=== PATIENT | female | born 1985 | race Caucasian/White ===

== ENCOUNTER 2019-01-21 06:32 | Day surgery (SDC) | payer OTHER ==
[~2019-01-21 06:32] MED LIST: Lactated Ringers 1,000 ML IV SCH
--- NOTE | 2019-01-21 06:54 | PCM.PREANE ---
Preanesthetic Assessment - Anesthesia/Transfusion/Family Hx Anesthesia History: Prior Anesthesia Without Reaction Family History of Anesthesia Reaction: No Transfusion History: No Prior Transfusion(s) - Review of Systems General: No Symptoms Pulmonary: No Symptoms Cardiovascular: No Symptoms Gastrointestinal: No Symptoms Neurological: No Symptoms Other: Reports: None - Physical Assessment NPO Status Date: 01/20/19 NPO Status Time: 21:30 Height: 1.7 m Weight: 71.214 kg ASA Class: 2 Mental Status: Alert & Oriented x3 Airway Class: Mallampati = 2 Dentition: Reports: Normal Dentition Thyro-Mental Finger Breadths: 2 (short TMD) Mouth Opening Finger Breadths: 3 ROM/Head Extension: Full Lungs: Clear to Auscultation, Normal Respiratory Effort Cardiovascular: Regular Rate, Regular Rhythm - Allergies Allergies/Adverse Reactions: Allergies Allergy/AdvReac Type Severity Reaction Status Date / Time amoxicillin Allergy Rash Verified 01/15/19 11:54 betamethasone Allergy Rash Verified 01/15/19 11:54 [From [employer]] latex Allergy Rash Verified 01/15/19 11:54 - Acknowledgements Anesthesia Type Planned: MAC (The patient understands and accepts the anesthetic risks and benefits of MAC, including possible awareness and possible conversion to general anesthesia. All questions answered. She agrees to proceed. ) Pt an Appropriate Candidate for the Planned Anesthesia: Yes Alternatives and Risks of Anesthesia Discussed w Pt/Guardian: Yes Pt/Guardian Understands and Agrees with Anesthesia Plan: Yes PreAnesthesia Questionnaire HEENT History: Reports: None Cardiovascular History: Reports: None Respiratory History: Reports: None Gastrointestinal History: Reports: None Genitourinary History: Reports: Renal Calculus Other Genitourinary History: has passed kidney stones Musculoskeletal History: Reports: Back Pain, Chronic (preop pain score 3/10, sometimes pain radiates into right lower extremity.) Neurological History: Reports: Migraines Psychiatric History: Reports: None Endocrine/Metabolic History: Reports: None - Past Surgical History HEENT Surgical History: Reports: Oral Surgery Other HEENT Surgeries/Procedures: wisdom teeth removed Other Surgical History Comment: history of lipoma removal with local anesthesia - SUBSTANCE USE Smoking Status *Q: Never Smoker Days Per Week of Alcohol Use: 0 (etoh "1x every 2-3 months") Recreational Drug Use History: No - HOME MEDS Home Medications: Home Meds Biotin 10 mg PO DAILY 01/15/19 [History] Cholecalciferol (Vitamin D3) [Vitamin D3] 5,000 unit PO DAILY 01/15/19 [History] Cyanocobalamin (Vitamin B12) [Vitamin B12] 500 mcg PO DAILY 01/15/19 [History] Diclofenac Sodium [Voltaren 1% Gel] 4 gm TOP QID PRN 01/15/19 [History] Ibuprofen [Motrin] 200 mg PO ASDIRECTED PRN 01/15/19 [History] Naproxen Sodium [Aleve] 220 mg PO ASDIRECTED 01/15/19 [History] Norgestimate-Ethinyl Estradiol [Tri-Linyah Tablet] 1 tab PO DAILY 01/15/19 [ History] Phentermine HCl 37.5 mg PO QAM 01/15/19 [History] - CURRENT (IN HOUSE) MEDS Current Meds: Current Medications Lactated Ringer's (Ringers, Lactated) 1,000 mls @ 125 mls/hr IV ASDIRECTED CARMEN
[2019-01-21] MEDS ORDERED: Midazolam 1 MG/ML 2 ML SDV ONE (07:02)
[2019-01-21] MEDS ORDERED: fentaNYL 100 MCG/2 ML SDV ONE (07:02)
[2019-01-21] MEDS ORDERED: Propofol 200 MG/20 ML SDV ONE (07:03)
[2019-01-21] MEDS ORDERED: Ketamine 500 mg/10 ML MDV ONE (07:21)
[2019-01-21] MEDS ORDERED: Lidocaine 1% 20 ML MDV ONE (07:21)
[2019-01-21] MEDS ORDERED: Bupivacaine 0.5% 10 ML SDV ONE (07:21)
[2019-01-21] MEDS ORDERED: Lactated Ringers 1,000 ML IV SCH (09:00)
--- NOTE | 2019-01-21 09:01 | PCM.OPNOTE ---
- General Post-Op/Procedure Note Date of Surgery/Procedure: 01/21/19 Operative Procedure(s): Excision volar and dorsal left forearm masses Pre Op Diagnosis: Left volar and dorsal forearm masses Post-Op Diagnosis: Same Anesthesia Technique: Local, MAC (ASA II) Primary Surgeon: Flaquito Perez Fluid Replacement, Intraop: 600 EBL in mLs: 5 Condition: Good Free Text/Narrative:: DICTATION 577226 CPT CODE 03312
--- NOTE | 2019-01-21 09:26 | PCM48HPAN ---
Post Anesthesia Note - EVALUATION WITHIN 48HRS OF ANESTHETIC Vital Signs in Normal Range: Yes Patient Participated in Evaluation: Yes Respiratory Function Stable: Yes Airway Patent: Yes Cardiovascular Function Stable: Yes Hydration Status Stable: Yes Pain Control Satisfactory: Yes Nausea and Vomiting Control Satisfactory: Yes Mental Status Recovered: Yes Resp Rate: 16 - COMMENTS/OBSERVATIONS Free Text/Narrative:: The patient by passed phase 1. She has no complaints at this time. There were no apparent anesthetic complications at this time. Discharge home per criteria.
--- NOTE | 2019-01-21 11:04 | OR ---
SURGEON: Flaquito Perez M.D. DATE OF PROCEDURE: 01/21/2019 OPERATION PERFORMED: Excision of left volar and left dorsal forearm masses. ANESTHESIA: Local MAC. ASA CLASSIFICATION: II. PREOPERATIVE DIAGNOSIS: Enlarging painful left forearm masses; one on the volar aspect, one on the dorsal aspect. POSTOPERATIVE DIAGNOSIS: Enlarging painful left forearm masses; one on the volar aspect, one on the dorsal aspect. ESTIMATED BLOOD LOSS: 5 mL. INTRAOPERATIVE FLUID REPLACEMENT: 600 mL of crystalloid. DESCRIPTION OF PROCEDURE: The patient was taken to the operating room and placed on the operating table in the supine position. Time-out was called for appropriate identification of the patient and procedure. Thigh-high TEDs and sequential compression boots were placed. The left upper extremity was prepped with DuraPrep solution. Sterile drapes were applied. Skin incision for both had been marked out as had the surgical sites. The volar aspect was approached first. The skin was infiltrated with 1% Xylocaine and 0.5% Marcaine solution. Skin incision was made and deepened to the subcutaneous tissue where the forearm masses were identified. These were dissected out with a combination of sharp and blunt dissection and electrocautery. Bleeding sites were electrocoagulated. The wound was then palpated. No other masses were noted. The subcutaneous tissue was reapproximated with 3-0 Vicryl. The skin edges were reapproximated with subcuticular 4-0 Monocryl. Our attention was now turned to the dorsal aspect where again the skin was infiltrated with 1% Xylocaine and 0.5% Marcaine solution. Skin incision was made and deepened down to the subcutaneous mass, which again was dissected free using a combination of sharp and blunt dissection and electrocautery. Once the mass was removed, the bleeding sites were electrocoagulated. The specimen was sent separately and each specimen identified appropriately as the left volar forearm mass and the left dorsal forearm mass. Again, this incision was closed in 2 layers approximating the subcutaneous tissue with 3-0 Vicryl and the skin with subcuticular 4-0 Monocryl. Both incisions were Steri-Stripped and dressed with sterile Tegaderm pads. Sponge, needle, and instrument counts were all correct. The patient was taken to recovery room in stable condition. BOSSMAN / PACO /[id number]
== END 2019-01-21 09:25 | disposition home or self-care (01) ==
LOC: MW.SDS 06:32
PROVIDERS: ATTEND Surgery
DX: D17.22 Benign lipomatous neoplasm of skin and subcutaneous tissue of left arm (principal); M51.36 Other intervertebral disc degeneration, lumbar region; M41.9 Scoliosis, unspecified; Z88.8 Allergy status to other drugs, medicaments and biological substances; Z88.1 Allergy status to other antibiotic agents; Z91.040 Latex allergy status; Z79.1 Long term (current) use of non-steroidal anti-inflammatories (NSAID); Z79.3 Long term (current) use of hormonal contraceptives; Z79.891 Long term (current) use of opiate analgesic; Z79.899 Other long term (current) drug therapy
CPT/HCPCS: 25075; 81025; J2001; J2250; J2704; J3010; J3490; J7120; 88304

== ENCOUNTER 2019-11-18 06:33 | Day surgery (SDC) | payer BC, OTHER ==
[~2019-11-18 06:33] MED LIST changes: +cefOXitin 1 GM in Premix Bag 1 BAG IV SCH
--- NOTE | 2019-11-18 07:10 | PCM.PREANE ---
Preanesthetic Assessment - Anesthesia/Transfusion/Family Hx Anesthesia History: Prior Anesthesia Without Reaction Family History of Anesthesia Reaction: No Transfusion History: No Prior Transfusion(s) Intubation History: Unknown - Review of Systems General: No Symptoms Pulmonary: No Symptoms Cardiovascular: No Symptoms Gastrointestinal: Abdominal Pain Neurological: No Symptoms Other: Reports: None - Physical Assessment Height: 5 ft 6 in Weight: 63.503 kg ASA Class: 2 Mental Status: Alert & Oriented x3 Airway Class: Mallampati = 2 Dentition: Reports: Normal Dentition Thyro-Mental Finger Breadths: 3 Mouth Opening Finger Breadths: 2 ROM/Head Extension: Full Lungs: Clear to Auscultation, Normal Respiratory Effort Cardiovascular: Regular Rate, Regular Rhythm - Allergies Allergies/Adverse Reactions: Allergies Allergy/AdvReac Type Severity Reaction Status Date / Time amoxicillin Allergy Rash Verified 11/13/19 15:20 betamethasone Allergy Rash Verified 11/13/19 15:20 [From Celestone] ketamine Allergy Pain Verified 11/13/19 15:20 latex Allergy Itching Verified 11/13/19 15:20 pregabalin [From Lyrica] Allergy Rash Verified 11/13/19 15:20 - Blood Blood Available: No - Anesthesia Plan Pre-Op Medication Ordered: None - Acknowledgements Anesthesia Type Planned: General Anesthesia Pt an Appropriate Candidate for the Planned Anesthesia: Yes Alternatives and Risks of Anesthesia Discussed w Pt/Guardian: Yes Pt/Guardian Understands and Agrees with Anesthesia Plan: Yes PreAnesthesia Questionnaire HEENT History: Reports: None Cardiovascular History: Reports: None Other Cardiovascular History: takes Spironolactone for acne Respiratory History: Reports: None Gastrointestinal History: Reports: Cholelithiasis Genitourinary History: Reports: Renal Calculus Other Genitourinary History: hx of passing kidney stones Musculoskeletal History: Reports: Back Pain, Chronic, Other (See Below) Neurological History: Reports: Migraines, Other (See Below) Other Neuro History: chronic migraines- occur at least weekly, hx of degenerative disc disease, hx of motion sickness Psychiatric History: Reports: None Endocrine/Metabolic History: Reports: None Immunologic History: Reports: Other (See Below) Other Immunologic History: being tested for Lupus - Past Surgical History Head Surgeries/Procedures: Reports: None HEENT Surgical History: Reports: Oral Surgery Other HEENT Surgeries/Procedures: wisdom teeth removed Musculoskeletal Surgical History: Reports: Other (See Below) Other Musculoskeletal Surgeries/Procedures:: excision of lipoma and mass left arm - SUBSTANCE USE Smoking Status *Q: Never Smoker Recreational Drug Use History: No - HOME MEDS Home Medications: Home Meds Biotin 10 mg PO DAILY 01/15/19 [History] Cholecalciferol (Vitamin D3) [Vitamin D3] 5,000 unit PO DAILY 01/15/19 [History] Cyanocobalamin (Vitamin B12) [Vitamin B12] 500 mcg PO DAILY 01/15/19 [History] Diclofenac Sodium [Voltaren 1% Gel] 4 gm TOP QID PRN 01/15/19 [History] Naproxen Sodium [Aleve] 220 mg PO ASDIRECTED PRN 01/15/19 [History] Norgestimate-Ethinyl Estradiol [Tri-Linyah Tablet] 1 tab PO DAILY 01/15/19 [ History] Cyanocobalamin (Vitamin B-12) [Cyanocobalamin Injection] 1,000 mcg IM ASDIRECTED 11/13/19 [History] DULoxetine [Cymbalta] 60 mg PO DAILY 11/13/19 [History] Hydrocodone/Acetaminophen [Hydrocodon-Acetaminophen 5-325] 1 tab PO ASDIRECTED PRN 11/13/19 [History] Naltrexone HCl 4.5 mg TOP BEDTIME 11/13/19 [History] Ondansetron [Zofran] 4 mg PO ASDIRECTED PRN 11/13/19 [History] Spironolactone 50 mg PO DAILY 11/13/19 [History] Topiramate 25 mg PO TID PRN 11/13/19 [History] - CURRENT (IN HOUSE) MEDS Current Meds: Current Medications Cefoxitin Sodium 1 gm/ Premix 50 mls @ 100 mls/hr IV ONETIME CARMEN Lactated Ringer's (Ringers, Lactated) 1,000 mls @ 125 mls/hr IV ASDIRECTED [facility]
[2019-11-18] MEDS ORDERED: Scopolamine 1.5 MG Transdermal Patch TRDERM PRN (07:11)
[2019-11-18] MEDS ORDERED: Rocuronium 100 MG/10 ML Syringe ONE (07:17)
[2019-11-18] MEDS ORDERED: Lidocaine 2% 5 ML SDV ONE (07:17)
[2019-11-18] MEDS ORDERED: Propofol 200 MG/20 ML SDV ONE (07:17)
[2019-11-18] MEDS ORDERED: Midazolam 1 MG/ML 2 ML SDV ONE (07:17)
[2019-11-18] MEDS ORDERED: fentaNYL 250 MCG/5 ML SDV ONE (07:17)
[2019-11-18] MEDS ORDERED: Bupivacaine 0.25% 10 ML SDV ONE (07:23)
[2019-11-18] MEDS ORDERED: ceFAZolin 1 GM Vial ONE (07:23)
[2019-11-18] MEDS ORDERED: Bupivacaine 0.5% 10 ML SDV ONE (07:36)
[2019-11-18] MEDS ORDERED: Ketorolac 30 MG/ML SDV ONE (10:09)
[2019-11-18] MEDS ORDERED: Sugammadex Sodium 200 MG/2 ML VIAL ONE (10:09)
[2019-11-18] MEDS ORDERED: Ondansetron 4 MG/2 ML SDV ONE ×2 (10:11)
[2019-11-18] MEDS ORDERED: Acetaminophen/HYDROcodone 325-5 MG Tab PO PRN (10:29)
[2019-11-18] MEDS ORDERED: Morphine 10 MG/ML Syringe IVPUSH PRN (10:29)
[2019-11-18] MEDS ORDERED: Lactated Ringers 1,000 ML IV SCH (10:30)
--- NOTE | 2019-11-18 10:32 | PCM.OPNOTE ---
- General Post-Op/Procedure Note Date of Surgery/Procedure: 11/18/19 Operative Procedure(s): Laparoscopic cholecystectomy Pre Op Diagnosis: Symptomatic cholelithiasis Post-Op Diagnosis: Same Anesthesia Technique: General ET Tube (ASA II) Primary Surgeon: Flaquito Perez Fluid Replacement, Intraop: 1,500 Output, Urine Amount: 50 EBL in mLs: 10 Condition: Good Free Text/Narrative:: DICTATION 613959 CPT CODE 66529
[2019-11-18] MEDS ORDERED: fentaNYL 100 MCG/2 ML SDV IVPUSH PRN (10:37)
[2019-11-18] MEDS ORDERED: HYDROmorphone 2 MG/ML Syringe IVPUSH PRN (10:39)
--- NOTE | 2019-11-18 11:13 | PCM.POSTAN ---
POST ANESTHESIA ASSESSMENT - MENTAL STATUS Mental Status: Alert, Oriented - VITAL SIGNS Vital Signs: Last Vital Signs Temp 97.0 F 11/18/19 10:32 Pulse 55 L 11/18/19 11:07 Resp 18 11/18/19 11:07 BP 132/74 11/18/19 11:07 Pulse Ox 99 11/18/19 11:07 - RESPIRATORY Respiratory Status: Respiratory Rate WNL, Airway Patent, O2 Saturation Stable - CARDIOVASCULAR CV Status: Pulse Rate WNL, Blood Pressure Stable - GASTROINTESTINAL GI Status: No Symptoms - PAIN Pain Score: 2 - POST OP HYDRATION Hydration Status: Adequate & Stable - OBSERVATIONS Free Text/Narrative:: Pt stable for tx to phase II recovery.
--- NOTE | 2019-11-18 11:51 | OR ---
SURGEON: Flaquito Perez M.D. DATE OF PROCEDURE: 11/18/2019 OPERATION PERFORMED: Laparoscopic cholecystectomy. PRIMARY SURGEON: Flaquito Perez MD. ANESTHESIA: General endotracheal. ASA CLASSIFICATION: II. PREOPERATIVE DIAGNOSIS: Symptomatic cholelithiasis. POSTOPERATIVE DIAGNOSIS: Symptomatic cholelithiasis. ESTIMATED BLOOD LOSS: 10 mL. INTRAOPERATIVE FLUID REPLACEMENT: 1500 mL of crystalloid. INTRAOPERATIVE URINARY OUTPUT: 50 mL. DESCRIPTION OF PROCEDURE: The patient was taken to the operating room and placed on the operating table in the supine position. Time-out was called for appropriate identification of the patient and procedure. Thigh-high TEDs and sequential compression boots were placed. Following satisfactory attainment of general endotracheal anesthesia, a Meyer catheter was placed in the patient's urinary bladder. The abdomen was prepped with DuraPrep solution. Sterile drapes were applied. The skin approximately 3 cm below the umbilicus was infiltrated with 0.5% Marcaine solution. Skin incision was made and deepened through the subcutaneous tissue obtaining hemostasis with the use of electrocautery. The Veress needle was introduced into the peritoneal cavity. Saline drop test was positive. Carbon dioxide pneumoperitoneum was established with the release set at 13 cm of water. Once a satisfactory pneumoperitoneum was established, the Veress needle was removed and 5 mm camera and port were placed through the infraumbilical incision. The patient was now positioned with her feet down and rolled to the left. Under camera vision, 12 mm subxiphoid, 5 mm midclavicular, and 5 mm anterior axillary ports were placed. Each incision had preemptively been infiltrated with 0.5% Marcaine solution. The gallbladder was grasped. The cholecystohepatic triangle was dissected free obtaining good critical view of the cystic duct and cystic artery. These structures were serially hemoclipped and then divided with the laparoscopic Metzenbaum scissor. The gallbladder was dissected away from its bed using electrocautery. Once the gallbladder was amputated, this was placed in an Endopouch. The right upper quadrant was inspected for hemostasis and small bleeding sites were electrocoagulated. The right upper quadrant was irrigated with sterile saline solution and all fluid was aspirated. The bed of the gallbladder was packed with Surgicel. The right upper quadrant was then irrigated with 250 mL of saline with 20 mL of 0.5% Marcaine solution. Under camera vision, the Endo Catch containing gallbladder and 12 mm port were removed. Under camera vision, 5 mm anterior axillary and midclavicular ports were removed. Finally, the infraumbilical camera and port were removed. All wounds were inspected for hemostasis and small bleeding sites were electrocoagulated. The subxiphoid and infraumbilical incisions were closed in 2 layers approximating the subcutaneous tissue with 3-0 Vicryl and the skin with subcuticular 4-0 Monocryl. The anterior axillary and midclavicular incisions were closed with subcuticular 4-0 Monocryl. All incisions were Steri- Stripped and dressed with sterile Tegaderm pads. Meyer catheter was removed prior to emergence from anesthesia. Following emergence from anesthesia and extubation, the patient was taken to recovery room in stable condition. BOSSMAN ANTONIO /[id number]
--- NOTE | 2019-11-18 13:29 | PCM48HPAN ---
Post Anesthesia Note - EVALUATION WITHIN 48HRS OF ANESTHETIC Vital Signs in Normal Range: Yes Patient Participated in Evaluation: Yes Respiratory Function Stable: Yes Airway Patent: Yes Cardiovascular Function Stable: Yes Hydration Status Stable: Yes Pain Control Satisfactory: Yes Nausea and Vomiting Control Satisfactory: Yes Mental Status Recovered: Yes Vital Signs: Last Vital Signs Temp 36.3 C 11/18/19 11:10 Pulse 62 11/18/19 11:55 Resp 16 11/18/19 11:55 BP 124/70 11/18/19 11:55 Pulse Ox 100 11/18/19 11:55 - COMMENTS/OBSERVATIONS Free Text/Narrative:: No anesthesia problems
== END 2019-11-18 13:49 | disposition home or self-care (01) ==
LOC: MW.SDS 06:33
PROVIDERS: ATTEND Surgery
DX: K80.10 Calculus of gallbladder with chronic cholecystitis without obstruction (principal); M51.36 Other intervertebral disc degeneration, lumbar region; M47.816 Spondylosis without myelopathy or radiculopathy, lumbar region; G43.909 Migraine, unspecified, not intractable, without status migrainosus; Z88.0 Allergy status to penicillin; Z88.1 Allergy status to other antibiotic agents; Z88.8 Allergy status to other drugs, medicaments and biological substances; Z91.040 Latex allergy status; Z79.899 Other long term (current) drug therapy; Z86.2 Personal history of diseases of the blood and blood-forming organs and certain disorders involving the immune mechanism; Z83.79 Family history of other diseases of the digestive system; Z87.442 Personal history of urinary calculi; Z98.890 Other specified postprocedural states
CPT/HCPCS: 36415; 47562; 84703; 88304; A9270; J0694; J1885; J2001; J2250; J2405; J2704; J3010; J3490; J7120; 00790; J0690

== ENCOUNTER 2021-01-22 09:15 | Day surgery (SDC) | payer MEDICAID ==
[~2021-01-22 09:15] MED LIST changes: +Midazolam 1 MG/ML 2 ML SDV ONE; +Propofol 200 MG/20 ML SDV ONE; -cefOXitin 1 GM in Premix Bag 1 BAG IV SCH
--- NOTE | 2021-01-22 10:01 | PCM.PREANE ---
Preanesthetic Assessment - Anesthesia/Transfusion/Family Hx Anesthesia History: Prior Anesthesia Without Reaction Family History of Anesthesia Reaction: No Transfusion History: No Prior Transfusion(s) Intubation History: Unknown - Review of Systems General: No Symptoms Pulmonary: No Symptoms Cardiovascular: No Symptoms Gastrointestinal: No Symptoms Neurological: No Symptoms Other: Reports: None - Physical Assessment NPO Status Date: 01/22/21 NPO Status Time: 00:01 Height: 5 ft 6 in Weight: 160 lb ASA Class: 3 Mental Status: Alert & Oriented x3 Airway Class: Mallampati = 2 Dentition: Reports: Normal Dentition ROM/Head Extension: Full Lungs: Clear to Auscultation, Normal Respiratory Effort Cardiovascular: Regular Rate, Regular Rhythm - Allergies Allergies/Adverse Reactions: Allergies Allergy/AdvReac Type Severity Reaction Status Date / Time amoxicillin Allergy Rash Verified 01/20/21 08:20 betamethasone Allergy Rash Verified 01/20/21 08:20 [From [employer]] ketamine Allergy Pain Verified 01/20/21 08:20 latex Allergy Itching Verified 01/20/21 08:20 pregabalin [From Lyrica] Allergy Rash Verified 01/20/21 08:20 - Anesthesia Plan Pre-Op Medication Ordered: None - Acknowledgements Anesthesia Type Planned: General Anesthesia Pt an Appropriate Candidate for the Planned Anesthesia: Yes Alternatives and Risks of Anesthesia Discussed w Pt/Guardian: Yes Pt/Guardian Understands and Agrees with Anesthesia Plan: Yes Additional Comments: npo after mn chronic lbp on naltrexone last dose last night headaches tob none etoh rarely bmi 26 par no questions PreAnesthesia Questionnaire HEENT History: Reports: None Cardiovascular History: Reports: None Respiratory History: Reports: None Gastrointestinal History: Reports: Cholelithiasis Genitourinary History: Reports: Renal Calculus Other Genitourinary History: hx of passing kidney stones Musculoskeletal History: Reports: Back Pain, Chronic Other Musculoskeletal History: DDD Neurological History: Reports: Migraines Psychiatric History: Reports: None Endocrine/Metabolic History: Reports: None Hematologic History: Reports: None Immunologic History: Reports: None Oncologic (Cancer) History: Reports: None Dermatologic History: Reports: None - Past Surgical History Head Surgeries/Procedures: Reports: None HEENT Surgical History: Reports: Oral Surgery Other HEENT Surgeries/Procedures: wisdom teeth removed Cardiovascular Surgical History: Reports: None Respiratory Surgical History: Reports: None GI Surgical History: Reports: Cholecystectomy Female Surgical History: Reports: None Endocrine Surgical History: Reports: None Neurological Surgical History: Reports: None Musculoskeletal Surgical History: Reports: Other (See Below) Other Musculoskeletal Surgeries/Procedures:: excision of lipoma and mass left arm Oncologic Surgical History: Reports: None Dermatological Surgical History: Reports: None - SUBSTANCE USE Tobacco Use Status *Q: Never Tobacco User - HOME MEDS Home Medications: Home Meds Cholecalciferol (Vitamin D3) [Vitamin D3] 5,000 unit PO DAILY 01/15/19 [History] Naproxen Sodium [Aleve] 220 mg PO ASDIRECTED PRN 01/15/19 [History] Naltrexone HCl 4.5 mg PO BEDTIME 11/13/19 [History] Ondansetron [Zofran] 4 mg PO ASDIRECTED PRN 11/13/19 [History] Spironolactone 50 mg PO DAILY 11/13/19 [History] Cyanocobalamin (Vitamin B12) [Vitamin B12] 500 mcg PO DAILY 01/20/21 [History] - CURRENT (IN HOUSE) MEDS Current Meds: Current Medications Lactated Ringer's (Ringers, Lactated) 1,000 mls @ 125 mls/hr IV ASDIRECTED CARMEN Discontinued Medications Midazolam HCl (Midazolam 1 Mg/Ml 2 Ml Sdv) Confirm Administered Dose 2 mg .ROUTE .STK-MED ONE Stop: 01/22/21 06:53 Propofol (Propofol 200 Mg/20 Ml Sdv) Confirm Administered Dose 600 mg .ROUTE .STK-MED ONE Stop: 01/22/21 06:53
--- NOTE | 2021-01-22 11:44 | PCM.OPNOTE ---
- General Post-Op/Procedure Note Date of Surgery/Procedure: 01/22/21 Operative Procedure(s): Colonoscopy with cecal and rectal biopsies Pre Op Diagnosis: Change in bowel habits. History of irritable bowel syndrome. Post-Op Diagnosis: Nonspecific colitis Anesthesia Technique: MAC (ASA II) Primary Surgeon: Flaquito Perez Medicare Nurse: Amanda Lipscomb Condition: Good Free Text/Narrative:: DICTATION 327991 CPT CODE 66499
[2021-01-22] MEDS ORDERED: Lactated Ringers 1,000 ML IV SCH (11:45)
--- NOTE | 2021-01-22 11:57 | PCM.POSTAN ---
POST ANESTHESIA ASSESSMENT - MENTAL STATUS Mental Status: Alert (no anesthetic problems), Oriented - VITAL SIGNS Vital Signs: Last Vital Signs Temp 98.8 F 01/22/21 09:25 Pulse 68 01/22/21 11:50 Resp 14 01/22/21 11:50 BP 105/60 01/22/21 11:50 Pulse Ox 100 01/22/21 11:50 - RESPIRATORY Respiratory Status: Respiratory Rate WNL, Airway Patent, O2 Saturation Stable - CARDIOVASCULAR CV Status: Pulse Rate WNL, Blood Pressure Stable - GASTROINTESTINAL GI Status: No Symptoms - POST OP HYDRATION Hydration Status: Adequate & Stable
--- NOTE | 2021-01-22 12:27 | PCM48HPAN ---
Post Anesthesia Note - EVALUATION WITHIN 48HRS OF ANESTHETIC Vital Signs in Normal Range: Yes Patient Participated in Evaluation: Yes Respiratory Function Stable: Yes Airway Patent: Yes Cardiovascular Function Stable: Yes Hydration Status Stable: Yes Pain Control Satisfactory: Yes Nausea and Vomiting Control Satisfactory: Yes Mental Status Recovered: Yes Vital Signs: Last Vital Signs Temp 98.4 F 01/22/21 11:57 Pulse 60 01/22/21 11:57 Resp 15 01/22/21 11:57 BP 103/52 L 01/22/21 11:57 Pulse Ox 100 01/22/21 11:57
--- NOTE | 2021-01-22 16:47 | OR ---
SURGEON: Flaquito Perez M.D. DATE OF PROCEDURE: 01/22/2021 OPERATION PERFORMED: Colonoscopy with cecal and rectal biopsies. PRIMARY SURGEON: Flaquito Perez M.D. CROP CONSULTANT: cardiology physician assistant: RADHAMES Gonzalez student. ANESTHESIA: MAC. ASA CLASSIFICATION: II. PREOPERATIVE DIAGNOSES: 1. Change in bowel habits. 2. History of irritable bowel syndrome. POSTOPERATIVE DIAGNOSIS: Mild nonspecific colitis. DESCRIPTION OF PROCEDURE: The patient was taken to the endoscopy room and positioned on the endoscopy table in the left lateral decubitus position. Time-out was called for appropriate identification of the patient and procedure. Monitored anesthesia care was provided. The colonoscope was inserted into the rectum and advanced with minimal difficulty to the cecum, where the colonoscope was retroflexed to visualize the ascending colon from below. The colonoscope was then straightened. Cecum did have some mild granular-appearing changes and biopsies of this area were obtained. The ascending colon, hepatic flexure, transverse colon, splenic flexure, descending colon, and sigmoid colon were very well- visualized. No tumors, polyps, diverticula, or angiodysplastic changes were noted, and there was no evidence of inflammatory bowel disease. Once the colonoscope was withdrawn to the rectum, again the mucosa appeared somewhat granular and separate biopsies of this area were obtained. The colonoscope was then retroflexed to visualize the anal orifice from above. No acute hemorrhoidal changes were noted, and no bleeding was seen. The colonoscope was then straightened, the rectum aspirated, and the colonoscope removed. The patient tolerated the procedure well and was taken to recovery room in stable condition. BOSSMAN / PACO /[id number] [facility]
== END 2021-01-22 12:28 | disposition home or self-care (01) ==
LOC: MW.SDS 09:15
PROVIDERS: ATTEND Surgery
DX: R19.4 Change in bowel habit (principal); G89.4 Chronic pain syndrome; M79.18 Myalgia, other site; M51.36 Other intervertebral disc degeneration, lumbar region; Z88.1 Allergy status to other antibiotic agents; Z88.8 Allergy status to other drugs, medicaments and biological substances; Z91.040 Latex allergy status; Z87.19 Personal history of other diseases of the digestive system; G43.909 Migraine, unspecified, not intractable, without status migrainosus; Z79.899 Other long term (current) drug therapy; Z90.49 Acquired absence of other specified parts of digestive tract; Z98.890 Other specified postprocedural states
CPT/HCPCS: 45380; 81025; 88305; J2250; J2704; J7120; 00811